=== PATIENT | male | born 1980 | race Caucasian/White ===

== ENCOUNTER 2017-06-09 19:23 | Emergency (ER) | payer SELFPAY ==
[~2017-06-09] VITALS: Ht 165.1 cm; Wt 68.0 kg
[2017-06-09 19:27] VITALS: BP 140/81; PULSE 107; RESP 16; TEMP 98.3; O2SAT 98
== END 2017-06-09 21:52 | disposition left against medical advice (07) ==
LOC: NED 19:23
DX: R68.89 Other general symptoms and signs (principal)
CPT/HCPCS: 99281